=== PATIENT | male | born 1965 ===

== ENCOUNTER 2017-03-19 23:21 | Emergency (ER) | payer SELFPAY ==
[~2017-03-19] VITALS: Ht 177.8 cm; Wt 81.0 kg
[2017-03-19 23:27] VITALS: Ht 177.8 cm; Wt 81.0 kg
--- NOTE | 2017-03-19 23:42 | ERA ---
ER Documentation Chief Complaint Date/Time DATE: 03/19/17 TIME: 23:42 Chief Complaint Blood stool HPI . The patient is 51-year-old male, presenting with chronic bloody stool for long history of ulcerative colitis, complains of small bloody stool today; he had similar symptoms previously. He denies fever, chills, neck pain, chest pain , dyspnea, vomiting, dysuria. He was discharged from the residential [facility] 7[facility]year yesterday, currently [facility]. He does not smoke nor drink denies illicit drug Past medical history: ulcerative colitis, anemia Past surgical history: He had a colonoscopy last year ROS All systems reviewed and are negative except as per history of present illness. Medications Home Meds Active Scripts Hydrocodone/Acetaminophen ([place] 5-325 Tablet) 1 Each Tablet, 1 TAB PO Q6H Y for PAIN, #7 TAB Prov:MAXIME POLLARD MD 03/20/17 Metronidazole* (Flagyl*) 500 Mg Tablet, 500 MG PO TID for 10 Days, TAB Prov:MAXIME POLLARD MD 03/20/17 Ciprofloxacin Hcl* (Ciprofloxacin Hcl*) 500 Mg Tablet, 500 MG PO BID for 7 Days , TAB Prov:MAXIME POLLARD MD 03/20/17 Reported Medications Ergocalciferol (Vitamin D) 400 Unit Capsule, 400 UNIT PO DAILY, CAP 03/20/17 Folic Acid* (Folic Acid*) 1 Mg Tablet, 1 MG PO DAILY, TAB 03/20/17 Loperamide Hcl* (Loperamide Hcl*) 2 Mg Cap, 2 MG PO prn, CAP 03/20/17 Iron,Carbonyl/Vit C/Vit B12/Fa (IRON 100 PLUS TABLET) 1 Each Tablet, 1 EACH PO, TAB 03/20/17 Allergies Allergies: Coded Allergies: No Known Allergy (Unverified , 03/19/17) Physical Exam Vitals Vital Signs Date Time Temp Pulse Resp B/P Pulse Ox O2 Delivery O2 Flow Rate FiO2 03/20/17 02:12 97.6 63 18 131/82 97 Room Air 03/19/17 23:27 97.4 72 18 134/85 98 Physical Exam Const: No acute distress. Head: Atraumatic. Eyes: Normal Conjunctiva. ENT: Normal External Ears, Nose and Mouth. Neck: Full range of motion. No meningismus. Resp: Clear to auscultation bilaterally. Cardio: Regular rate and rhythm. Abd: Soft, non distended, normal bowel sounds, mild and vague diffuse abdominal tenderness, No rigidity, rebound, CVA tenderness Skin: No petechiae or rashes. Back: No midline or flank tenderness. Ext: No cyanosis, or edema. Neur: Awake and alert. No focal deficit Psych: Normal Mood and Affect. Result Diagram: 03/19/17 8734 03/19/17 2334 Results 24 hrs Laboratory Tests Test 03/19/17 23:34 03/20/17 00:44 White Blood Count 8.110^3/ul Red Blood Count 4.4410^6/ul Hemoglobin 12.7g/dl Hematocrit 36.8% Mean Corpuscular Volume 82.9fl Mean Corpuscular Hemoglobin 28.6pg Mean Corpuscular Hemoglobin Concent 34.5g/dl Red Cell Distribution Width 13.5% Platelet Count 25648^3/UL Mean Platelet Volume 8.0fl Neutrophils % 37.2% Lymphocytes % 44.6% Monocytes % 16.4% Eosinophils % 0.4% Basophils % 0.4% Nucleated Red Blood Cells % 0.0/100WBC Neutrophils # (Manual) 3.010^3/ul Lymphocytes # 3.610^3/ul Monocytes # 1.310^3/ul Eosinophils # 0.010^3/ul Basophils # 0.010^3/ul Nucleated Red Blood Cells # 0.010^3/ul Sodium Level 137mmol/L Potassium Level 3.7mmol/L Chloride Level 104mmol/L Carbon Dioxide Level 26mmol/L Anion Gap 11 Blood Urea Nitrogen 20mg/dl Creatinine 0.98mg/dl Glucose Level 90mg/dl Calcium Level 9.0mg/dl Total Bilirubin 0.3mg/dl Direct Bilirubin 0.00mg/dl Indirect Bilirubin 0.3mg/dl Aspartate Amino Transf (AST/SGOT) 18IU/L Alanine Aminotransferase (ALT/SGPT) 23IU/L Alkaline Phosphatase 64IU/L Total Protein 7.1g/dl Albumin 3.8g/dl Globulin 3.30g/dl Albumin/Globulin Ratio 1.15 Lipase 89U/L Stool Occult Blood NEGATIVE Current Medications Medications (Trade) Dose Ordered Sig/Cristina Route PRN Reason Start Time Stop Time Status Last Admin Dose Admin Morphine Sulfate (morphine) 4 mg ONCE STAT IV 03/20/17 00:43 03/20/17 00:44 DC 03/20/17 01:36 Ondansetron HCl (Zofran Inj) 4 mg ONCE STAT IV 03/20/17 00:43 03/20/17 00:44 DC 03/20/17 01:35 IV Flush 10 ml 10 ml STK-MED ONCE .ROUTE 03/20/17 01:21 03/20/17 01:22 DC 03/20/17 01:29 Sodium Chloride (NS) 100 ml @ ud STK-MED ONCE .ROUTE 03/20/17 01:21 03/20/17 01:22 DC 03/20/17 01:29 Iohexol (Omnipaque 300mg/ ml) 150 ml STK-MED ONCE .ROUTE 03/20/17 01:21 03/20/17 01:22 DC 03/20/17 01:29 Procedures/[place] [address] Radiology Main Line: [phone] DIAGNOSTIC IMAGING REPORT Patient: LUZMARIA MONTANO : 1965 Age: 51 Sex: M MR #: [id number] DOS: 03/20/17 0012 Ordering MD: MAXIME POLLARD MD Location: E/R Room/Bed: PROCEDURE: CT abdomen and pelvis with intravenous contrast. CLINICAL INDICATION: Rectal bleeding. History of colitis. TECHNIQUE: CT of the abdomen/pelvis was performed utilizing axial images with reconstructions in sagittal and coronal planes after uneventful administration of 100 cc Omnipaque 300. The administered radiation dose is CTDI 11.3 mGy, DLP 747 mGy-cm. One or more of the following dose reduction techniques were used: automated exposure control, adjustment of the mA and/or kV according to patient size and/or use of iterative reconstruction technique. COMPARISON: No pertinent prior examinations were submitted for comparison. FINDINGS: Visualized Chest: The visualized lung bases are clear. Abdomen: The liver,pancreas, gallbladder,and adrenal glands are unremarkable. There is moderate splenomegaly. The kidneys are without hydronephrosis. No definite urinary calculi are seen. A tiny hypoattenuating lesion is noted at the upper pole of the left kidney. There is no evidence of bowel obstruction. The appendix is normal. No intra- abdominal free air is seen. There is moderate to marked thickening of the distal descending colon, sigmoid colon and rectum with some mild surrounding inflammatory changes. There is no evidence of intra-abdominal adenopathy or free fluid. Pelvis: There is no evidence of pelvic adenopathy or free fluid. The prostate and bladder are unremarkable. Small bilateral fat containing inguinal hernias are noted. Osseous structures: Unremarkable. IMPRESSION: Thickening of the vas left colon and rectum compatible with proctocolitis. Moderate splenomegaly. RPTAT: HIKT .Severo Marcus MD, MD Date Time Electronically viewed and signed by .Severo Marcus MD, MD on 03/20/2017 02:02 .T/ CC: MAXIME POLLARD MD . MEDICAL MAKING DECISION: The patient is a 51-year-old male, presenting with acute proctocolitis, most likely due to exacerbation of ulcerative colitis. He was treated with morphine 4 mg IV for pain, Zofran 4 mg IV for nausea with good response. He is stable for outpatient follow-up The differential diagnoses considered include but are not limited to cholelithiasis, cholecystitis, cystitis, pancreatitis, hepatitis, gastritis, peptic ulcer disease, gastric ulcer, appendicitis, diverticulitis, cholangitis, choledocholithiasis, partial small bowel obstruction. Departure Diagnosis: Primary Impression: Proctocolitis Additional Impression: Anemia Condition: Good Comments He was discharged with Cipro, Flagyl, 7 tablets of [place] 5 mg I discussed the findings with the patient. I advised the patient to follow-up with the primary physician or at [facility] in about 1-2 days, sooner if needed and return if any concern. The patient's blood pressure was elevated (>120/80) but appears stable without evidence of hypertension emergency or urgency. The patient was counseled about the risks of hypertension and urged to pursue outpatient monitoring and therapy within a week with their primary care physician. MAXIME POLLARD MD Mar 19, 2017 23:42
[2017-03-20 00:31] LABS: BASOPHILS % 0.4 % (0.0-2.0); EOSINOPHILS % 0.4 % (0.0-7.0); HEMATOCRIT 36.8 % (42.0-52.0); HEMOGLOBIN 12.7 g/dl (14.0-18.0); LYMPHOCYTES # 3.6 10^3/ul (0.8-2.9); LYMPHOCYTES % 44.6 % (15.0-51.0); MEAN CORPUSCULAR HEMOGLOBIN 28.6 pg (29.0-33.0); MEAN CORPUSCULAR HGB CONC 34.5 g/dl (32.0-37.0); MEAN CORPUSCULAR VOLUME 82.9 fl (82.0-101.0); MONOCYTE # 1.3 10^3/ul (0.3-0.9); MONOCYTES % 16.4 % (0.0-11.0); NEUTROPHILS % 37.2 % (39.0-77.0); PLATELET COUNT 210 10^3/UL (140-415); RED BLOOD COUNT 4.44 10^6/ul (4.70-6.10); RED CELL DISTRIBUTION WIDTH 13.5 % (11.5-14.5); WHITE BLOOD COUNT 8.1 10^3/ul (4.8-10.8)
[2017-03-20] MEDS ORDERED: ONDANSETRON 4 MG INJ IV STA (00:43)
[2017-03-20] MEDS ORDERED: morphine 4 MG/ML VIAL IV STA (00:43)
[2017-03-20 01:11] LABS: ALBUMIN 3.8 g/dl (3.3-4.9); ALBUMIN/GLOBULIN RATIO 1.15; BILIRUBIN,INDIRECT 0.3 mg/dl (0-1.1); BILIRUBIN,TOTAL 0.3 mg/dl (0.2-1.3); CREATININE 0.98 mg/dl (0.61-1.24); POTASSIUM 3.7 mmol/L (3.5-5.1); TOTAL PROTEIN 7.1 g/dl (6.1-8.1)
[2017-03-20] MEDS ORDERED: IOHEXOL 300MG/ML 150 ML BTL ONE (01:21)
[2017-03-20] MEDS ORDERED: SOD CHLORIDE 0.9% 100 ML ONE (01:21)
[2017-03-20] MEDS ORDERED: CHOL400C PO (01:41)
[2017-03-20] MEDS ORDERED: IRON1TAB78 PO (01:41)
[2017-03-20] MEDS ORDERED: IMO2 PO (01:41)
[2017-03-20] MEDS ORDERED: FOLI-49 PO (01:41)
--- NOTE | 2017-03-20 02:02 | RADRPT ---
PROCEDURE: CT abdomen and pelvis with intravenous contrast. CLINICAL INDICATION: Rectal bleeding. History of colitis. TECHNIQUE: CT of the abdomen/pelvis was performed utilizing axial images with reconstructions in s agittal and coronal planes after uneventful administration of 100 cc Omnipaque 300. The administered radiation dose is CTDI 11.3 mGy, DLP 747 mGy-cm. One or more of the following dose reduction techni ques were used: automated exposure control, adjustment of the mA and/or kV according to patient size and/or use of iterative reconstruction technique. COMPARISON: No pertinent prior examinations were submitted for comparison. FINDINGS: Visualized Chest: The visualized lung bases are clear. Abdomen: The liver,pancreas, gallbladder,and adrenal glands are unremarkable. There is moderate splenomegal y. The kidneys are without hydronephrosis. No definite urinary calculi are seen. A tiny hypoattenuatin g lesion is noted at the upper pole of the left kidney. There is no evidence of bowel obstruction. The appendix is normal. No intra-abdominal free air is seen. There is moderate to marked thickening of the distal descending colon, sigmoid colon and rect um with some mild surrounding inflammatory changes. There is no evidence of intra-abdominal adenopathy or free fluid. Pelvis: There is no evidence of pelvic adenopathy or free fluid. The prostate and bladder are unremarkable. Small bilateral fat containing inguinal hernias are noted. Osseous structures: Unremarkable. IMPRESSION: Thickening of the vas left colon and rectum compatible with proctocolitis. Moderate splenomegaly. RPTAT: HIKT .Severo Marcus MD, MD Date Time Electronically viewed and signed by .Severo Marcus MD, MD on 03/20/2017 02:02 .T/
[2017-03-20 02:12] VITALS: BP 131/82; PULSE 63; RESP 18; TEMP 97.6
[2017-03-20] MEDS ORDERED: HYDR-906 PO (02:23)
[2017-03-20] MEDS ORDERED: METR500T PO (02:23)
[2017-03-20] MEDS ORDERED: CIPR500T4 PO (02:23)
== END 2017-03-20 02:38 | disposition home or self-care (01) ==
LOC: E/R 23:21
DX: K52.82 Eosinophilic colitis (principal); D64.9 Anemia, unspecified
CPT/HCPCS: 36415; 74177; 80053; 82270; 83690; 85025; 86850; 86900; 86901; 87045; 87205; 96374; 96375; 99285; J2270; J2405; Q9967